=== PATIENT | male | born 1970 | race Hispanic/Latino ===

== ENCOUNTER 2017-06-17 17:09 | Inpatient (IN) | payer SELFPAY ==
[2017-06-17 18:22] VITALS: BMI 34.1
[2017-06-17] MEDS ORDERED: LIDOCAINE 2% MPF 5 ML VIAL ONE (19:10)
[2017-06-17] MEDS ORDERED: ROCURONIUM 50 MG/5 ML VIAL IV ONE ×3 (19:10→21:02)
[2017-06-17] MEDS ORDERED: PROPOFOL 200 MG/20 ML VIAL IV ONE (19:10)
[2017-06-17] MEDS ORDERED: FENTANYL CITR 100 MCG/2 ML ONE (19:10)
[2017-06-17] MEDS ORDERED: Ringers Lactate 1,000 ML IV ONE ×2 (19:16→22:01)
--- NOTE | 2017-06-17 20:13 | P.HP ---
Date of Service: 06/17/17 PC: This 47-year-old male was admitted with acute cholecystitis with cholelithiasis. HPC: Patient presented to an outside facility where he had right upper quadrant abdominal pain, radiating into his back, it remained constant. He has had previous episodes. This time however the pain began, and would not subside as at all. He was given narcotics at the emergency room but his pain still persisted. On workup was found to have cholecystitis with cholelithiasis and a stone stuck in the neck of the gallbladder that was not movable. PMH: Negative PSHx: Denies any prior surgeries SOC: No known allergies SYS REVIEW: No cough, wheeze, shortness of breath. No chest pain or palpitations. States relatively good shape. Works as a contractor. O/E awake alert vital signs are stable HEENT: Not clinically jaundice Chest: Chest movement equal bilaterally ABD: Tender in the right upper quadrant with positive Lugo's sign LOCO: Intact DATA: Documented gallstones were, 1 stuck in the neck of the gallbladder IMPRESSION: Acute cholecystitis with cholelithiasis, biliary colic PLAN: I will take him to the operating room for laparoscopic possible open cholecystectomy with intraoperative cholangiogram. The risks of this procedure have been discussed. The possibility of bleeding, infection, injury to blood vessels and intestines and bile ducts were outlined. The possible need for an open and/or further surgeries and procedures was discussed. He understands and wants us to proceed.
[2017-06-17] MEDS ORDERED: DEXAMETHASONE 10 MG/ML VIAL ONE (20:23)
[2017-06-17] MEDS ORDERED: KETOROLAC 30 MG/ML INJ ONE (20:23)
[2017-06-17] MEDS ORDERED: Phenylephrine HCl 10 MG/ML 1 ML VIAL ONE (20:36)
[2017-06-17] MEDS ORDERED: NEOSTIGMINE 1 MG/ML -5 ML SYRINGE ONE (21:01)
[2017-06-17] MEDS ORDERED: GLYCOPYRROLATE 0.2 MG/ML SYR ONE (21:01)
[2017-06-17] MEDS: MEPERIDINE HCL 50 MG/ML AMP ONE ×3 (21:36→22:00)
[2017-06-17] MEDS ORDERED: ONDANSETRON 4 MG/2 ML VIAL ONE (21:38)
--- NOTE | 2017-06-17 21:40 | P.OP ---
Preoperative diagnosis: Acute on chronic cholecystitis with cholelithiasis Postoperative diagnosis: The same Primary procedure: Laparoscopic cholecystectomy with cholangiogram Anesthesia: General Estimated blood loss: Less than 10 cc Specimen: 1 gallbladder Operative Technique: The patient brought to the operating room placed supine on the table. After the induction of adequate general endotracheal anesthesia, the area of the abdomen was prepped with a DuraPrep solution, he was draped in usual aseptic manner. A subumbilical incision was made. This brought down through the skin and subcutaneous tissue. The tissue port was then used to enter the peritoneal cavity and created pneumoperitoneum to approximately 12 mm of mercury. Under direct vision a 5 mm trocar was placed in the upper midline, and 2 5 mm trocars on the right lateral side of the abdomen. The patient was then placed in reverse Trendelenburg and rolled to the left. We could see a distended and edematous gallbladder. The contents were aspirated using an aspirating needle. A grasper was now placed on the fundus in of the down by a very edematous Jacky's pouch. The peritoneum was opened over the Jacky pouch area. This allowed us to gently dissect down and expose the cystic duct and artery. Having expose structured obtained the critical view, a clip was placed between the gallbladder and the cystic duct. An opening was made into the cystic duct through which we obtained a normal intraoperative cholangiogram. There was good flow contrast into the duodenum. No filling defects were noted. At this point the catheter was withdrawn. Clips were placed on the distal portion of the cystic duct. The cystic duct was now transected. A clip was also placed on the cystic artery. The cystic duct was now completely transected. Electro cautery was used to divide the cystic artery. The gallbladder was now dissected free from the liver bed. It was noted be markedly edematous. He was placed into an Endo-Catch, and brought out through the umbilical trocar site. At this point the abdomen is inspected to ensure adequate hemostasis. The irrigating fluid was aspirated from the peritoneal cavity. The anterior abdominal wall was blocked using 0.25% Marcaine as a GINO block. The umbilical trocar site was approximated using 2 interrupted sutures of absorbable material placed using the Endo Close. The pneumoperitoneum was now collapsed, the trocars removed, and the suture tied. Annabelle were then applied to the skin. At the end of the procedure he was stable when sent to the recovery room. Needle sponge instrument count were correct. Complications: None Transferred to: Recovery Room Condition: Good
[2017-06-17] MEDS ORDERED: HYDROCODONE/APAP 7.5/325 MG TAB PO PRN (21:55)
[2017-06-17] MEDS ORDERED: MORPHINE 4 MG/ML SYR IV PRN (21:55)
[2017-06-17] MEDS ORDERED: ONDANSETRON 4 MG/2 ML VIAL IV PRN (21:55)
[2017-06-17] MEDS: Ringers Lactate 1,000 ML IV SCH (22:00)
--- NOTE | 2017-06-17 22:41 | RAD REPORT ---
EXAM DESCRIPTION: RAD - Cholangiogram Oper-Xray Or - 06/17/2017 10:20 pm FINDINGS: Right upper abdomen fluoroscopy performed. Multiple portable C-arm views were obtained during fluoroscopic assisted intraoperative cholangiogram . Assessment is limited when only selected images are available. No extravasation of contrast identifie d. No duct stones are suspected. Correlation is needed with findings during real-time evaluation.
[2017-06-18 00:02] VITALS: O2SAT 94
[2017-06-18] MEDS: Ringers Lactate 1,000 ML IV SCH (06:46)
[2017-06-18] MEDS ORDERED: Morphine 2 MG/2 ML SYR IV PRN (07:21)
[2017-06-18 10:01] VITALS: TEMP 98.1
[2017-06-18 14:14] VITALS: BP 119/69
== END 2017-06-18 13:36 | disposition home or self-care (01) | DRG 419 ==
LOC: 2ND 17:09
PROVIDERS: ADMIT Surgery; ATTEND Surgery
PROC: BF00YZZ Plain Radiography of Bile Ducts using Other Contrast (ICD-10-PCS; 2017-06-17)
PROC: 0FT44ZZ Resection of Gallbladder, Percutaneous Endoscopic Approach (ICD-10-PCS; principal; 2017-06-17 20:00)
DX: K80.12 Calculus of gallbladder with acute and chronic cholecystitis without obstruction (principal)
CPT/HCPCS: 74300; 88304; J1100; J2175; J2370; J2405; J2710; J3010; Q9967

== ENCOUNTER 2020-09-07 18:36 | Emergency (ER) | payer SELFPAY ==
--- NOTE | 2020-09-07 19:10 | RAD REPORT ---
EXAM DESCRIPTION: RAD - Chest Single View - 09/07/2020 7:00 pm CLINICAL HISTORY: DYSPNEA COMPARISON: No comparisons FINDINGS: Vague bilateral airspace opacities. No consolidation or edema. The heart size is within no rmal limits.No acute osseous abnormality. No significant pleural effusions or pneumothorax. IMPRESSION: Vague bilateral airspace disease could reflect mild multifocal pneumonia, including Covi d-19.
[2020-09-07 19:16] LABS: Absolute Lymphocytes (CBC) 0.8 K/uL (0.7-4.9); Basophils % 0.6 % (0-1.3); Hematocrit 45.5 % (39.6-49.0); Lymphocytes % 16.1 % (15.3-44.8); MPV 8.2 fL (7.6-11.3); RBC Red Blood Cell Count 5.08 M/uL (4.33-5.43)
[2020-09-07 19:19] LABS: Protime INR 1.09
[2020-09-07] MEDS ORDERED: ONDANSETRON 4 MG/2 ML VIAL ONE (19:33)
[2020-09-07 19:56] LABS: ALT/SGPT 105 U/L (12-78); AST/SGOT 86 U/L (15-37); Albumin 3.6 g/dL (3.4-5.0); Alkaline Phosphatase 103 U/L (45-117); BUN Blood Urea Nitrogen 11 mg/dL (7-18); Bicarbonate 26 mmol/L (21-32); Bilirubin Direct 0.3 mg/dL (0-0.2); Bilirubin Total 0.6 mg/dL (0.2-1.0); Glucose Level 104 mg/dL (74-106); Potassium 3.4 mmol/L (3.5-5.1); Protein, Total 8.2 g/dL (6.4-8.2); Sodium Level 136 mmol/L (136-145)
[2020-09-07 19:57] LABS: Lipase 248 U/L (73-393); Troponin (Emerg Dept Use Only) < 0.02 ng/mL (0.0-0.045)
[2020-09-07] MEDS ORDERED: NA CHLORIDE 0.9% 1,000 ML ONE (20:11)
[2020-09-07] MEDS ORDERED: ACETAMINOPHEN 325 MG TABLET ONE (20:11)
--- NOTE | 2020-09-07 20:52 | RAD REPORT ---
EXAM DESCRIPTION: CT - Chest For Pe Angio - 09/07/2020 8:41 pm CLINICAL HISTORY: DYSPNEA COMPARISON: Chest Single View dated 09/07/2020 FINDINGS: Chest Wall: No suspicious thyroid nodules or pathologic lymphadenopathy. Lungs: Mild to moderate bilateral patchy ground-glass of airspace disease. Pleura: No significant effusions or pneumothorax. Mediastinum/norberto: No pathologic lymphadenopathy. Pulmonary arteries/Aorta: No filling defect identified. No aortic aneurysm. Heart: No significant pericardial effusion. Normal heart size. Upper abdomen: No acute abnormality. Hepatic steatosis. Bones: No acute abnormality. IMPRESSION: Negative for pulmonary embolism. Mild to moderate bilateral patchy airspace disease in a pattern concerning for multifocal pneumonia, including Covid-19.
--- NOTE | 2020-09-07 21:14 | ER ---
Nurse's Notes [facility] Name: Jeremiah Contreras Age: 50 yrs Sex: Male : 1970 Arrival Date: 09/07/2020 Time: 18:39 Bed 24 Private MD: Diagnosis: Coronavirus infection, unspecified;Viral pneumonia, unspecified Presentation: 09/07 18:41 Chief complaint: EMS states: tested + for covid on 08/29/20 but for the last 5 days has tw2 been nauseous and vomiting. states he cant keep anything down. didn't complain of SOB but when we evaluated him he was having increased work of breathing, vs stable. we put him on NRB and he was states it helped him out. Coronavirus screen: Client presents with at least one sign or symptom that may indicate coronavirus-19. Standard/surgical mask placed on the client. Provider contacted for isolation considerations. Ebola Screen: Patient denies travel to an Ebola-affected area in the 21 days before illness onset. Initial Sepsis Screen: Does the patient meet any 2 criteria? Temp <36.0*C (96.8*F)) or > 38.3*C (100.9*F). HR > 90 bpm. Does the patient have a suspected source of infection? Yes: Productive cough/pneumonia. Risk Assessment: Do you want to hurt yourself or someone else? Patient reports no desire to harm self or others. Onset of symptoms was September 07, 2020. 18:41 Method Of Arrival: EMS: [facility] tw2 18:41 Acuity: YANG 3 tw2 Triage Assessment: 18:49 General: Appears in no apparent distress. uncomfortable, Behavior is calm, cooperative, tw2 appropriate for age. Pain: Complains of pain in abdomen. EENT: Reports nasal congestion nasal discharge. Neuro: Level of Consciousness is awake, alert, obeys commands, Oriented to person, place, time, situation. Cardiovascular: Capillary refill < 3 seconds. Respiratory: Reports shortness of breath at rest. GI: Reports lower abdominal pain, upper abdominal pain, intolerance of fluids, intolerance of food, nausea, vomiting. : No signs and/or symptoms were reported regarding the genitourinary system. Derm: No signs and/or symptoms reported regarding the dermatologic system. Musculoskeletal: Range of motion: intact in all extremities. Historical: - Allergies: 18:40 No Known Allergies; tw2 - Home Meds: 18:40 None [Active]; tw2 - PMHx: 18:40 None; tw2 - PSHx: 18:40 None; tw2 - Immunization history:: Adult Immunizations. - Social history:: Smoking status: . Screenin:51 Abuse screen: Denies threats or abuse. Nutritional screening: No deficits noted. tw2 Tuberculosis screening: No symptoms or risk factors identified. Fall Risk None identified. Assessment: 18:50 Reassessment: see triage assessment. tw2 19:27 General:. ld1 20:12 Reassessment: Patient appears in no apparent distress at this time. No changes from ld1 previously documented assessment. Patient is alert, oriented x 3, equal unlabored respirations, skin warm/dry/pink. Vital Signs: 18:41 BP 139 / 92; Pulse 107; Resp 22; Pulse Ox 96% on R/A; tw2 18:41 Temp 101(O); tw2 18:56 Weight 95.25 kg (R); Height 5 ft. 5 in. (165.10 cm); tw2 20:12 BP 140 / 74; Pulse 99; Resp 20; Temp 101.6(O); Pulse Ox 95% on R/A; ld1 21:09 BP 129 / 59; Pulse 100; Resp 26; Temp 99.6(O); Pulse Ox 98% on R/A; Pain 0/10; ld1 18:56 Body Mass Index 34.95 (95.25 kg, 165.10 cm) tw2 ED Course: 18:39 Patient arrived in ED. tw2 18:40 Bed in low position. Call light in reach. Side rails up X 1. Side rails up X2. Pulse ox tw2 on. NIBP on. 18:45 Laila Doshi FNP-C is PHCP. kb 18:45 Dawson Lowe MD is Attending Physician. kb 18:49 Triage completed. tw2 18:49 Arm band placed on. tw2 19:00 CXR XRAY In Process Unspecified. EDMS 19:00 Report given to NOE Fuentes. tw2 19:01 Inserted saline lock: 20 gauge in right antecubital area, using aseptic technique. tw2 Blood collected. 19:27 Dibbern, Gina, RN is Primary Nurse. ld1 20:40 CT Chest For PE Angio In Process Unspecified. EDMS 21:28 No provider procedures requiring assistance completed. IV discontinued, intact, ld1 bleeding controlled, No redness/swelling at site. Administered Medications: 19:00 Drug: Zofran (Ondansetron) 4 mg Route: IVP; Site: right antecubital; ld1 19:28 Follow up: Response: No adverse reaction ld1 19:55 Drug: NS 0.9% 1000 ml Route: IV; Rate: 1000 ml; Site: right antecubital; ld1 19:55 Drug: Tylenol 650 mg Route: PO; ld1 19:58 Follow up: Response: No adverse reaction ld1 Outcome: 21:14 Discharge ordered by . kb 21:29 Discharged to home ambulatory. ld1 21:29 Condition: stable 21:29 Discharge instructions given to patient, Instructed on discharge instructions, follow up and referral plans. medication usage, Demonstrated understanding of instructions, follow-up care, medications, Prescriptions given X 4. 21:30 Patient left the ED. ld1 Signatures: Dispatcher [employer] EDIN Laila Doshi, HAND MOLDER-C HAND MOLDER-Saranya White RN RN tw2 Gina Louise, RN RN ld1
--- NOTE | 2020-09-07 21:14 | EDPHYS ---
Physician Documentation [facility] Name: Jeremiah Contreras Age: 50 yrs Sex: Male : 1970 Arrival Date: 09/07/2020 Time: 18:39 Bed 24 Private MD: ED Physician Dawson Lowe HPI: 09/07 21:07 This 50 yrs old Male presents to ER via EMS with complaints of kb Nausea/Vomiting, COVID + since 08/29/20, increased WOB. 21:07 The patient presents to the emergency department with nausea, vomiting, diarrhea. kb Onset: The symptoms/episode began/occurred 5 day(s) ago. Possible causes: sick contacts, by family, . The symptoms are aggravated by nothing. The symptoms are alleviated by nothing. Associated signs and symptoms: Pertinent positives: diarrhea, fever, nausea, vomiting. Severity of symptoms: At their worst the symptoms were mild moderate in the emergency department the symptoms are unchanged. The patient has not experienced similar symptoms in the past. The patient has not recently seen a physician. Patient reports nausea, vomiting, diarrhea, fever, chills, cough and congestion for 5 days. States he is unable to keep anything down. Reports had tested positive for Covid on the . Patient has not been tested for Covid. Historical: - Allergies: 18:40 No Known Allergies; tw2 - Home Meds: 18:40 None [Active]; tw2 - PMHx: 18:40 None; tw2 - PSHx: 18:40 None; tw2 - Immunization history:: Adult Immunizations. - Social history:: Smoking status: . ROS: 21:08 Cardiovascular: Negative for chest pain, palpitations, and edema. kb 21:08 Constitutional: Positive for fatigue, fever, malaise. 21:08 Respiratory: Positive for cough, Negative for dyspnea on exertion, hemoptysis, orthopnea, pleurisy, shortness of breath, sputum production, wheezing. 21:08 Abdomen/GI: Positive for nausea, vomiting, and diarrhea, Negative for abdominal pain. 21:08 All other systems are negative. Exam: 21:09 Constitutional: This is a well developed, well nourished patient who is awake, alert, kb and in no acute distress. Head/Face: Normocephalic, atraumatic. ENT: Moist Mucous membranes Cardiovascular: Regular rate and rhythm with a normal S1 and S2. No gallops, murmurs, or rubs. No pulse deficits. Respiratory: Respirations even and unlabored. No increased work of breathing, no retractions or nasal flaring. Abdomen/GI: Soft, non-tender. No distention Skin: Warm, dry with normal turgor. Normal color. MS/ Extremity: Pulses equal, no cyanosis. Neurovascular intact. Full, normal range of motion. Neuro: Awake and alert, GCS 15, oriented to person, place, time, and situation. Moves all extremities. Normal gait. Psych: Awake, alert, with orientation to person, place and time. Behavior, mood, and affect are within normal limits. Vital Signs: 18:41 BP 139 / 92; Pulse 107; Resp 22; Pulse Ox 96% on R/A; tw2 18:41 Temp 101(O); tw2 18:56 Weight 95.25 kg (R); Height 5 ft. 5 in. (165.10 cm); tw2 20:12 BP 140 / 74; Pulse 99; Resp 20; Temp 101.6(O); Pulse Ox 95% on R/A; ld1 21:09 BP 129 / 59; Pulse 100; Resp 26; Temp 99.6(O); Pulse Ox 98% on R/A; Pain 0/10; ld1 18:56 Body Mass Index 34.95 (95.25 kg, 165.10 cm) tw2 MDM: 18:45 Patient medically screened. kb 21:09 Data reviewed: vital signs, nurses notes. Data interpreted: Pulse oximetry: on room air kb is 95 %. Interpretation: normal. Counseling: I had a detailed discussion with the patient and/or guardian regarding: the historical points, exam findings, and any diagnostic results supporting the discharge/admit diagnosis, lab results, radiology results, the need for outpatient follow up, a family practitioner, to return to the emergency department if symptoms worsen or persist or if there are any questions or concerns that arise at home. 09/07 18:46 Order name: BMP kb 09/07 18:46 Order name: Blood Culture Adult (2) kb 09/07 18:46 Order name: C-Reactive Protein kb 09/07 18:46 Order name: CBC with Diff; Complete Time: 19:29 kb 09/07 18:46 Order name: D-Dimer; Complete Time: 19:29 kb 09/07 18:46 Order name: Ferritin; Complete Time: 20:01 kb 09/07 18:46 Order name: LFT's; Complete Time: 20:01 kb 09/07 18:46 Order name: Lactate; Complete Time: 19:29 kb 09/07 18:46 Order name: Lipase; Complete Time: 20:01 kb 09/07 18:46 Order name: PT-INR; Complete Time: 19:29 kb 09/07 18:46 Order name: Procalcitonin; Complete Time: 19:50 kb 09/07 18:46 Order name: Ptt, Activated; Complete Time: 19:29 kb 09/07 18:46 Order name: Troponin (emerg Dept Use Only); Complete Time: 20:01 kb 09/07 18:46 Order name: Basic Metabolic Panel; Complete Time: 20:01 EDMS 09/07 18:46 Order name: CXR XRAY; Complete Time: 19:24 kb 09/07 18:46 Order name: EKG; Complete Time: 18:47 kb 09/07 18:46 Order name: Cardiac monitoring; Complete Time: 19:38 kb 09/07 18:46 Order name: Droplet/Contact Precautions; Complete Time: 18:56 kb 09/07 18:46 Order name: EKG - Nurse/Tech; Complete Time: 19:29 kb 09/07 18:46 Order name: IV Start; Complete Time: 19:10 kb 09/07 18:46 Order name: Labs collected and sent; Complete Time: 19:10 kb 09/07 18:46 Order name: O2 Per Protocol; Complete Time: 18:55 kb 09/07 18:46 Order name: O2 Sat Monitoring; Complete Time: 18:55 kb 09/07 18:46 Order name: Blood Culture EDMS 09/07 18:46 Order name: C-Reactive Protein; Complete Time: 20:01 EDMS 09/07 19:29 Order name: CT Chest For PE Angio; Complete Time: 20:52 kb 09/07 20:21 Order name: PO challenge; Complete Time: 20:34 kb 09/07 20:53 Order name: Vital Signs; Complete Time: 21:11 kb Administered Medications: 19:00 Drug: Zofran (Ondansetron) 4 mg Route: IVP; Site: right antecubital; ld1 19:28 Follow up: Response: No adverse reaction ld1 19:55 Drug: NS 0.9% 1000 ml Route: IV; Rate: 1000 ml; Site: right antecubital; ld1 19:55 Drug: Tylenol 650 mg Route: PO; ld1 19:58 Follow up: Response: No adverse reaction ld1 Disposition Summary: 09/07/20 21:14 Discharge Ordered Location: Home kb Condition: Stable kb Diagnosis - Coronavirus infection, unspecified kb - Viral pneumonia, unspecified kb Followup: kb - With: Emergency Department - When: As needed - Reason: Worsening of condition Followup: kb - With: Private Physician - When: 2 - 3 days - Reason: Recheck today's complaints, Continuance of care, Re-evaluation by your physician Discharge Instructions: - Discharge Summary Sheet kb - Viral Respiratory Infection, [id number] kb - COVID-19 kb Forms: - Medication Reconciliation Form kb - Thank You Letter kb - Antibiotic Education kb - Prescription Opioid Use kb Prescriptions: - albuterol sulfate 90 mcg/actuation Inhalation HFA aerosol inhaler - inhale 2 puff by INHALATION route every 4 hours As needed; 1 Inhaler; Refills: kb 0, Product Selection Permitted - Prednisone 20 mg Oral Tablet - take 1 tablet by ORAL route once daily for 5 days; 5 tablet; Refills: 0, kb Product Selection Permitted - Zofran 4 mg Oral Tablet - take 1 tablet by ORAL route every 6 hours As needed; 20 tablet; Refills: 0, kb Product Selection Permitted - Zithromax 500 mg Oral Tablet - take 1 tablet by ORAL route once daily for 5 days; 5 tablet; Refills: 0, kb Product Selection Permitted Addendum: 09/10/2020 07:04 Co-signature as Attending Physician, Dawson Lowe MD. r n Signatures: Dispatcher [employer] Laila Bronson, INSPECTOR PAWNSHOP DETAIL-C INSPECTOR PAWNSHOP DETAIL-Dawson Huntlye MD MD rn Wise, Tara, RN RN tw2 Gina Louise RN RN ld1
--- NOTE | 2020-09-08 07:29 | EKG ---
Test Date: 2020-09-07 Test Time: 19:17:02 Emergency Planner: MAGDA MEASUREMENT RESULTS: Intervals: Rate: 103 CT: 138 QRSD: 80 QT: 342 QTc: 448 [place]: P: 10 CT: 138 QRS: 65 T: 19 INTERPRETIVE STATEMENTS: Sinus tachycardia Otherwise normal ECG Compared to ECG 02/12/1998 22:59:00 Sinus rhythm no longer present Electronically Signed On 09-08-20 07:28:12 CDT by Kong Fonseca
[2020-09-08 16:32] VITALS: BP 129/59; TEMP 99.6; O2SAT 98
== END 2020-09-07 21:30 | disposition home or self-care (01) ==
LOC: ER 18:36
DX: U07.1 COVID-19 (principal); J12.9 Viral pneumonia, unspecified
CPT/HCPCS: 36415; 71045; 71275; 80048; 80076; 82728; 83605; 83690; 84145; 84484; 85025; 85379; 85610; 85730; 86140; 87040; 93005; 96374; 99284; J2405; J7030; Q9967